=== PATIENT | male | born 1985 | race Caucasian/White ===

== ENCOUNTER 2024-03-16 04:54 | Emergency (ER) | payer MEDICAID ==
[~2024-03-16] VITALS: Ht 172.7 cm; Wt 68.0 kg
[2024-03-16 04:56] VITALS: O2SAT 100
[2024-03-16 05:39] LABS: BASOPHILS % 0.6 % (0.0-2.0); HEMATOCRIT. 42.5 % (42.0-52.0); HEMOGLOBIN. 13.3 g/dL (14.0-18.0); LYMPHOCYTES % 9.5 % (20.0-50.0); MEAN CORPUSCULAR HEMOGLOBIN 28.9 pg (28.0-32.0); MEAN CORPUSCULAR HGB CONC 31.3 g/dL (31.0-37.0); MEAN CORPUSCULAR VOLUME 92.2 fL (80.0-94.0); MEAN PLATELET VOLUME 7.5 fl (7.4-10.4); MONOCYTES % 5.8 % (2.0-8.0); NEUTROPHILS % 84.1 % (40.0-76.0); PLATELET 613 x1000/uL (130-400); RED BLOOD CELL COUNT 4.61 mill/uL (4.7-6.1); RED CELL DISTRIBUTION WIDTH 13.4 % (11.6-14.6); WHITE BLOOD COUNT 21.5 x1000/uL (4.5-11.0)
[2024-03-16] MEDS: ONDANSETRON HCL 4MG/2ML INJ IV ONE (05:44)
[2024-03-16] MEDS: SODIUM CHLORIDE 0.9% 1,000 ML IV ONE ×2 (05:45)
[2024-03-16 05:47] LABS: CHLORIDE 94 mEq/L (98-107); POTASSIUM 5.7 mEq/L (3.5-5.1); SODIUM 131 mEq/L (136-145)
[2024-03-16 05:54] LABS: CREATININE 1.7 mg/dL (0.6-1.3); LACTIC ACID 2.7 mmol/L (0.4-2.0); UREA NITROGEN BLOOD 27 mg/dL (9-23)
[2024-03-16 05:56] LABS: ALANINE AMINOTRANSFERASE 9 IU/L (10-49); ALBUMIN 4.6 g/dL (3.2-4.8); ASPARTATE AMINOTRANSFERASE 12 IU/L (<34); BILIRUBIN DIRECT 0.2 mg/dL (<=3.0); BILIRUBIN TOTAL 0.8 mg/dL (0.1-1.0); PROTEIN TOTAL 8.2 g/dL (6.0-8.3)
[2024-03-16 06:00] LABS: ETHANOL BLOOD < 10 mg/dL (<10); INR 0.9; PROTHROMBIN TIME 10.2 sec (9.6-11.0)
[2024-03-16 06:02] LABS: CARBON DIOXIDE < 10 mEq/L (21-32); GLUCOSE 591 mg/dL (70-105)
[2024-03-16] MEDS: DEXT 5%/0.9% NACL 1,000 ML IV SCH ×2 (06:15→10:32)
[2024-03-16] MEDS ORDERED: POTASSIUM CHLORIDE 40 MEQ in SODIUM CHLORIDE 0.9% 230 ML IV PRN ×2 (06:15→10:15)
[2024-03-16] MEDS: SODIUM BICARBONATE 8.4% 50MEQ/50ML SYR IV ONE (06:15)
[2024-03-16] MEDS ORDERED: DEXTROSE 50% WATER 50ML SYRINGE IV PRN ×2 (06:15→10:15)
[2024-03-16] MEDS ORDERED: BLOOD SUGAR DIAGNOSTIC STRIP TEST PRN ×2 (06:15→10:15)
[2024-03-16] MEDS ORDERED: SODIUM PHOSPHATE 15 MMOL in SODIUM CHLORIDE 0.9% 245 ML IV PRN ×2 (06:15→10:15)
[2024-03-16] MEDS ORDERED: MAGNESIUM 2 G PREMIX 50 ML IV PRN ×2 (06:15→10:15)
[2024-03-16] MEDS ORDERED: KCL 20MEQ/100ML PREMIX 100 ML IV PRN (06:15)
[2024-03-16] MEDS ORDERED: INSULIN REGULAR (DRIP) 100 UNITS in SODIUM CHLORIDE 0.9% 99 ML IV SCH (06:15)
[2024-03-16] MEDS: ALBUTEROL (0.083%) 2.5MG/3ML NEB HHN ONE (06:15)
[2024-03-16 06:22] LABS: TROPONIN I HIGH SENSITIVITY < 4 ng/L (3.0-53)
[2024-03-16] MEDS: BLOOD SUGAR DIAGNOSTIC STRIP TEST SCH ×2 (06:36→10:15)
[2024-03-16 06:44] LABS: BG BASE EXCESS -21.6 mmol/L (-2.0-3.0); BG CARBOXYHEMOGLOBIN 0.2 % (0.5-1.5); BG DEOXYHEMOGLOBIN 1.9 % (0.0-5.0); BG FRACTION INSPIRED OXYGEN 21; BG HCO3 ACT 5.2 mmol/L (21.0-28.0); BG METHEMOGLOBIN 0.1 % (0.5-1.5); BG OXYGEN SATURATION 98.1 % (94.0-98.0); BG OXYHEMOGLOBIN 97.8 % (94.0-98.0); BG PCO2 15.4 mmHg (35.0-48.0); BG PH 7.143 (7.350-7.450); BG PO2 130.9 mmHg (83.0-108.0); BG SAMPLE SITE RIGHT RADIAL; BG VENT MODE ROOM AIR
[2024-03-16] MEDS: CALCIUM CHLORIDE 1GM/10ML SYR IV ONE (07:05)
[2024-03-16] MEDS: INSULIN REGULAR (HUMULIN R) 1000UNITS/10ML VIAL IV ONE (07:06)
[2024-03-16] MEDS: SODIUM CHLORIDE 0.9% 1,000 ML IV SCH ×2 (07:13→10:15)
[2024-03-16] MEDS: INSULIN REGULAR 100U/100ML PMX 100 ML IV SCH ×2 (07:13→14:51)
[2024-03-16 07:37] LABS: BETA HYDROXYBUTYRATE 11.8 mMol/L (0.0-0.3)
[2024-03-16 07:43] LABS: TROPONIN I HIGH SENSITIVITY < 4 ng/L (3.0-53)
[2024-03-16] MEDS: SODIUM BICARBONATE 8.4% 50MEQ/50ML SYR IV NR (08:35)
[2024-03-16] MEDS: PIPERACILLIN/TAZO 3.375G/50ML 50 ML IV ONE (08:40)
[2024-03-16] MEDS: VANCOMYCIN 1G PREMIX 200 ML IV ONE (08:55)
[2024-03-16] MEDS: SODIUM CHLORIDE 0.9% (SEPSIS BOLUS) IV ONE (09:07)
[2024-03-16] MEDS ORDERED: INSULIN REGULAR 100U/100ML PMX 100 ML IV SCH (10:15)
[2024-03-16] MEDS ORDERED: NALOXONE HCL 0.4MG/ML VIAL IV PRN (10:15)
[2024-03-16] MEDS ORDERED: MORPHINE SULFATE 2 MG/ML INJ (NOT FOR IM USE) IV PRN (10:15)
[2024-03-16] MEDS ORDERED: IPRATROPIUM/ALBUTEROL 0.5-3(2.5)MG/3ML NEB NEB PRN (10:15)
[2024-03-16] MEDS ORDERED: ONDANSETRON HCL 4MG/2ML INJ IV PRN (10:15)
[2024-03-16] MEDS ORDERED: HYDRALAZINE 20MG/ML VIAL IV PRN (10:15)
[2024-03-16] MEDS: VANCOMYCIN 500MG/100ML IV NR (12:06)
[2024-03-16] MEDS: ENOXAPARIN 40MG/0.4ML SYR SUBCUT SCH (12:07)
[2024-03-16 12:51] LABS: CHLORIDE 112 mEq/L (98-107); SODIUM 142 mEq/L (136-145)
[2024-03-16 12:52] LABS: CARBON DIOXIDE 15 mEq/L (21-32)
[2024-03-16 12:57] LABS: CREATININE 1.2 mg/dL (0.6-1.3); UREA NITROGEN BLOOD 18 mg/dL (9-23)
[2024-03-16 12:58] LABS: GLUCOSE 277 mg/dL (70-105)
[2024-03-16 12:59] LABS: ALANINE AMINOTRANSFERASE < 7 IU/L (10-49); ALBUMIN 3.6 g/dL (3.2-4.8); ASPARTATE AMINOTRANSFERASE 11 IU/L (<34); BILIRUBIN TOTAL 0.7 mg/dL (0.1-1.0); PROTEIN TOTAL 6.4 g/dL (6.0-8.3)
[2024-03-16] MEDS: PIPERACILLIN/TAZO 3.375G/50ML 50 ML IV SCH (14:35)
[2024-03-16] MEDS: KCL 20MEQ/100ML PREMIX 100 ML IV PRN (15:00)
[2024-03-16 15:16] LABS: CLARITY URINE CLEAR (CLEAR); COLOR URINE YELLOW (YELLOW); GLUCOSE URINE 3+ (NEGATIVE); KETONES URINE 4+ (NEGATIVE); LEUKOCYTE ESTERASE URINE NEGATIVE (NEGATIVE); NITRITE URINE NEGATIVE (NEGATIVE); OCCULT BLOOD URINE NEGATIVE (NEGATIVE); PROTEIN URINE 1+ (NEGATIVE); SPECIFIC GRAVITY URINE 1.022 (1.005-1.030); UROBILINOGEN URINE 0.2 E.U./dL (0.2-1.0)
[2024-03-16 15:28] LABS: BACTERIA URINE TRACE; SQUAMOUS EPITHELIAL CELL URINE RARE /lpf (RARE/1+); WBC URINE 0-2 /hpf (0-2); YEAST URINE 1+
[2024-03-16 15:29] LABS: RBC URINE NONE SEEN /hpf (0-2)
[2024-03-16 15:39] LABS: *AMPHETAMINES SCREEN URINE NEGATIVE (NEGATIVE); *BARBITURATES SCREEN URINE NEGATIVE (NEGATIVE); *BENZODIAZEPINES SCREEN URINE NEGATIVE (NEGATIVE); *COCAINE SCREEN URINE NEGATIVE (NEGATIVE)
[2024-03-16 15:40] LABS: CANNABINOID URINE SCREEN NEGATIVE (NEGATIVE); ECSTASY MDMA SCREEN URINE NEGATIVE (NEGATIVE); METHADONE URINE SCREEN NEGATIVE (NEGATIVE); OPIATES URINE SCREEN NEGATIVE (NEGATIVE); PHENCYCLIDINE URINE SCREEN NEGATIVE (NEGATIVE)
[2024-03-16 16:58] LABS: CHLORIDE 116 mEq/L (98-107); POTASSIUM 5.3 mEq/L (3.5-5.1); SODIUM 142 mEq/L (136-145)
[2024-03-16 16:59] LABS: CARBON DIOXIDE 18 mEq/L (21-32)
[2024-03-16 17:00] VITALS: BP 127/81; PULSE 94; RESP 14; TEMP 36.72516; O2SAT 96
[2024-03-16 17:06] LABS: CREATINE KINASE MB FRACTION 1.5 ng/mL (0.5-3.6); LACTIC ACID 2.1 mmol/L (0.4-2.0); PHOSPHORUS 1.5 mg/dL (2.5-4.9); TROPONIN I HIGH SENSITIVITY 5 ng/L (3.0-53)
[2024-03-16 17:07] LABS: CREATINE KINASE 34 IU/L (46-171)
[2024-03-16] MEDS ORDERED: ZOLPIDEM TARTRATE 5MG TABLET PO PRN (21:00)
[2024-03-16] MEDS ORDERED: VANCOMYCIN 750MG PREMIX 150 ML IV SCH (21:00)
[2024-03-17] MEDS ORDERED: PANTOPRAZOLE SODIUM 40 MG/VIAL IV SCH (09:00)
== END 2024-03-16 17:15 | disposition left against medical advice (07) ==
LOC: ER 04:54 → EDBEDREQ 09:51 → EDBEDREQTM 09:51 → ER 17:15
DX: A41.9 Sepsis, unspecified organism (principal); R65.20 Severe sepsis without septic shock; E11.10 Type 2 diabetes mellitus with ketoacidosis without coma; I10 Essential (primary) hypertension; Z20.822 Contact with and (suspected) exposure to COVID-19; Z86.59 Personal history of other mental and behavioral disorders
CPT/HCPCS: 80051; 80076; 80053; 80305; 80048; 81003; 82010; 80320; 82550; 82553; 82962; 83605; 83690; 83735; 83930; 84100; 85025; 85610; 87040; 87086; 84484; 87804 ×2; 36415; 84145; 71045; 93970; 82805; 82375; 93005; 96367; 96365; 96366; 96372; 96375; 99291; 87426; 36600; J3490 ×2; J1650; J1815 ×2; J2405; J2543; J3480; J3370 ×2; J7042; J7030; G0480